=== PATIENT | male | born 1990 | race Caucasian/White ===

== ENCOUNTER 2018-07-10 17:20 | Emergency (ER) | payer BC ==
[~2018-07-10] VITALS: Ht 182.9 cm; Wt 74.8 kg
[2018-07-10] MEDS ORDERED: Bacitracin Oint UD TOPIC ONE ×3 (17:48→18:45)
--- NOTE | 2018-07-10 17:52 | NUR ---
ED Nurse Note:pt. came with abrasion on left knee
--- NOTE | 2018-07-10 18:01 | Emergency Room Report ---
History of Present Illness General Chief Complaint: Lower Extremity Injury Source: Patient Present Illness HPI 27-year-old male with no significant past medical history here complaining of pain and swelling on left knee 2 days. Patient reports that he was in a ball E and he fell from 5 feet and hit his knee to the ground. He started noticing bleeding right after and used some adhesive Band-Aids to presents to bleeding. Patient has been taking Aleve for pain. Patient took a plane for [address] [facility] and his plane to [facility] where he is originally from was canceled he is expected to fly again at 9 AM tomorrow morning. Denies fever and chills, tingling, numbness, pain radiation, is rating the pain is intermittent and 5 out of 10. Is up-to-date with his tetanus shot. Denies all other injuries, denies alcohol intoxication,drug use Allergies: Coded Allergies: No Known Allergies (Unverified , 07/10/18) Patient History Past Medical History: see triage record Past Surgical History: none Immunizations: UTD - Tdap 9 months ago Reviewed Nursing Documentation: PMH: Agreed; PSxH: Agreed Nursing Documentation-PMH Past Medical History: No Stated History Review of Systems All Other Systems: negative except mentioned in HPI Physical Exam Vital Signs Date Time Temp Pulse Resp B/P (MAP) Pulse Ox O2 Delivery O2 Flow Rate FiO2 07/10/18 17:24 98.1 59 19 117/70 98 Room Air Sp02 EP Interpretation: reviewed, normal General Appearance: normal inspection, well appearing, no apparent distress, alert Head: normocephalic, atraumatic Eyes: bilateral eye normal inspection, bilateral eye PERRL ENT: normal ENT inspection, hearing grossly normal Neck: normal inspection, full range of motion, supple Respiratory: normal inspection, chest non-tender, normal breath sounds Cardiovascular #1: normal inspection, regular rate, rhythm, no murmur Cardiovascular #2: 2+ dorsalis pedis (R), 2+ dorsalis pedis (L) Gastrointestinal: normal inspection, soft Rectal: deferred Musculoskeletal: back normal, digits/nails normal, gait/station normal, normal range of motion, swelling - left knee and some abrasion noted with minimal pus drainage and left knee Neurologic: normal inspection, alert, oriented x3 Psychiatric: normal inspection, judgement/insight normal Skin: palpation normal, well hydrated, abrasions - left knee Lymphatic: normal inspection, no adenopathy Medical Decision Making PA Attestation All diagnosis and treatment plans were reviewed and discussed my supervising physician Dr. Lopez Diagnostic Impression: Primary Impression: Infected abrasion of left knee Additional Impression: Contusion of left knee ER Course 27-year-old male with no significant past medical history here complaining of pain and swelling on left knee 2 days. Patient reports that he was in a ball E and he fell from 5 feet and hit his knee to the ground. He started noticing bleeding right after and used some adhesive Band-Aids to presents to bleeding. Patient has been taking Aleve for pain. Patient took a plane for [address] [facility] and his plane to [facility] where he is originally from was canceled he is expected to fly again at 9 AM tomorrow morning. Denies fever and chills, tingling, numbness, pain radiation, is rating the pain is intermittent and 5 out of 10. Is up-to-date with his tetanus shot. Denies all other injuries, denies alcohol intoxication,drug use Ddx considered but are not limited to left knee sprain, left knee fracture, left knee abrasion, left knee infection Vital signs: are WNL, pt. is afebrile H&PE are most consistent with left knee infection ORDERS: wound clean, Keflex, naproxen, left knee x-ray ED INTERVENTIONS: None required at this time. DISCHARGE: At this time pt. is stable for d/c to home. Will provide printed patient care instructions, and any necessary prescriptions. Care plan and follow up instructions have been discussed with the patient prior to discharge. Other X-Ray Diagnostic Results Other X-Ray Diagnostic Results : X-Ray ordered: left knee # of Views/Limited Vs Complete: 3 View Indication: Swelling EP Interpretation: Yes PA Xray: Interpretation reviewed, by supervising MD, and agrees with findings. Interpretation: no dislocation, no fractures Impression: No acute disease Electronically Signed by: bobby CANALES Scribe Text FINDINGS: Bones/joints: No acute fracture or malalignment. Soft tissues: Unremarkable. IMPRESSION: No acute fracture or malalignment. Last Vital Signs Date Time Temp Pulse Resp B/P (MAP) Pulse Ox O2 Delivery O2 Flow Rate FiO2 07/10/18 17:24 98.1 59 19 117/70 98 Room Air Disposition: HOME, SELF-CARE Condition: Stable Scripts Naproxen* (NAPROXEN*) 500 Mg Tablet 500 MG ORAL TWICE A DAY for 28 Days, TAB Prov: Bobby Valentine 07/10/18 Cephalexin* (KEFLEX*) 500 Mg Capsule 500 MG ORAL EVERY 6 HOURS for 7 Days, #28 CAP Prov: Bobby Valentine 07/10/18 Patient Instructions: Abrasion, [id number], Contusion, [id number] Additional Instructions: read knee immobilizer on the plane, stay mobile, to prevent formation of blood clot due to long airplane ride take medication as directed, follow with a primary care provider within the next 48 hours factor imaging may be needed such as MRI. Keep changing the dressing on your knee. Bobby Valentine Jul 10, 2018 18:01
[2018-07-10] MEDS ORDERED: NAPROXEN500 M2 ORAL (18:39)
[2018-07-10] MEDS ORDERED: CEPHALEXIN500 MG ORAL (18:39)
[2018-07-10 18:44] VITALS: BP 117/70
--- NOTE | 2018-07-10 18:44 | NUR ---
Ed Nurse Note:knee immobilizer placed on left knee pt is cleared to be DC per ER provider, pt discharge and aftercare instruction provided w/ prescription, pt education done via discussion and handout, pt advised to follow up with pcp or return to ED if sx worsen or new sx develop, pt verbalized understanding and agrees with plan, pt vss, ambulatory w/ steady gait, all belongiongs left w/ pt, wristband removed.
--- NOTE | 2018-07-10 18:48 | Diagnostic Imaging Report ---
EXAM: XR Left Knee, 3 views CLINICAL HISTORY: TRAUMA TECHNIQUE: Three views of the left knee. COMPARISON: No relevant prior studies available. FINDINGS: Bones/joints: No acute fracture or malalignment. Soft tissues: Unremarkable. IMPRESSION: No acute fracture or malalignment.
== END 2018-07-10 18:45 | disposition home or self-care (01) ==
LOC: EDBD 17:20 → EMR 17:57
DX: S80.212A Abrasion, left knee, initial encounter (principal); L08.9 Local infection of the skin and subcutaneous tissue, unspecified; S80.02XA Contusion of left knee, initial encounter; W18.39XA Other fall on same level, initial encounter; Y92.89 Other specified places as the place of occurrence of the external cause
CPT/HCPCS: 99283